=== PATIENT | male | born 2000 | race Caucasian/White ===

== ENCOUNTER 2023-06-20 18:55 | Emergency (ER) | payer SELFPAY ==
[~2023-06-20] VITALS: Ht 170.2 cm; Wt 82.0 kg
[2023-06-20 18:59] VITALS: BP 183/95; O2SAT 99
[2023-06-20] MEDS ORDERED: HALOPERIDOL LACTATE 5MG/ML VIAL IM STA (19:16)
[2023-06-20] MEDS ORDERED: LORAZEPAM 2MG/ML CPJ IM STA (19:16)
[2023-06-20] MEDS ORDERED: DIPHENHYDRAMINE 50MG/ML VIAL IM STA (19:16)
[2023-06-20 20:36] VITALS: PULSE 122; RESP 18; TEMP 97.5
== END 2023-06-20 20:39 ==
LOC: ER 18:55
DX: R45.6 Violent behavior (principal); R45.1 Restlessness and agitation; F12.10 Cannabis abuse, uncomplicated
CPT/HCPCS: 20520; 99284